=== PATIENT | female | born 1960 | race African-American/Black ===

== ENCOUNTER → 2017-10-01 | Outpatient (CLI) | payer BC ==
--- NOTE | 2017-10-01 15:55 | CARD ---
MR#: [id number] Date of Study: 10/01/2017 Ordering Physician: DARIA RUIZ, Referring Physician: DARIA RUIZ, Enedina: Yuliana Quarles [facility] APPROVED REPORT EXAM: Two-dimensional and M-mode echocardiogram with Doppler and color Doppler. Other Information Quality : Average INDICATION Abnormal ECG Atrial Fibrillation 2D DIMENSIONS Left Atrium(2D)3.4 (1.6-4.0cm)IVSd1.2 (0.7-1.1cm) Aortic Root(2D)2.7 (2.0-3.7cm)LVDd4.4 (3.9-5.9cm) LVOT Diameter2.0 (1.8-2.4cm)PWd1.1 (0.7-1.1cm) LVDs3.6 (2.5-4.0cm)FS (%) 19.8 % SV36.2 mlLVEF(%)50.0 (>50%) Aortic Valve AoV Peak Wong.136.9cm/sAoV VTI33.2cm AO Peak GR.7.5mmHgLVOT Peak Wong.85.6cm/s LVOT VTI 20.53cmAO Mean GR.5mmHg JN (VMAX)1.24nn9DKW (VTI)1.95cm2 Mitral Valve MV E Hgvgojtq02.4cm/sMV A Sopjqivi76.3cm/s E/A Ratio0.8 TDI E/Lateral E'8.4E/Medial E'9.7 Pulmonary Valve PV Peak Unhefuyd49.3cm/sPV Peak Grad.3mmHg Tricuspid Valve TR P. Zjzrxwts709mn/sTR Peak Gr.47mmHg LEFT VENTRICLE The left ventricle is normal size. There is borderline to mild concentric left ventricular hypertroph y. The left ventricular systolic function is normal. Estimated ejesction fraction is 55-60%. There is normal LV segmental wall motion. Transmitral Doppler flow pattern is Grade I-abnormal relaxation pat tern. RIGHT VENTRICLE The right ventricle is normal size. There is normal right ventricular wall thickness. The right ventr icular systolic function is normal. ATRIA The left atrium size is normal. The right atrium size is normal. The interatrial septum is intact wit h no evidence for an atrial septal defect or patent foramen ovale as noted on 2-D or Doppler imaging. AORTIC VALVE The aortic valve is normal in structure and function. Doppler and Color Flow revealed trace aortic re gurgitation. There is no significant aortic valvular stenosis. MITRAL VALVE The mitral valve is mildly thickened but opens well. There is no evidence of mitral valve prolapse. T here is no mitral valve stenosis. Doppler and Color-flow revealed trace mitral regurgitation. TRICUSPID VALVE The tricuspid valve is normal in structure and function. Doppler and Color Flow revealed moderate tri cuspid regurgitation. PULMONIC VALVE The pulmonary valve is normal in structure and function. Doppler and Color Flow revealed trace pulmon ic valvular regurgitation. GREAT VESSELS The aortic root is normal in size. The ascending aorta is normal in size. The IVC is normal in size a nd collapses >50% with inspiration. PERICARDIAL EFFUSION There is no pleural effusion. There is no evidence of significant pericardial effusion. Critical Notification Critical Value: No <Conclusion> The left ventricular systolic function is normal. Estimated ejesction fraction is 55-60%. There is normal LV segmental wall motion. Transmitral Doppler flow pattern is Grade I-abnormal relaxation pattern. Trace aortic regurgitation. Trace mitral regurgitation. Moderate tricuspid regurgitation. There is no evidence of significant pericardial effusion. Signed by : Daria Ruiz, Electronically Approved : 10/01/2017 15:55:12
== END | disposition home or self-care (01) ==
LOC: ECHO 12:53
PROVIDERS: ATTEND Internal Medicine Cardiovascular Disease
DX: I51.7 Cardiomegaly (principal); I48.0 Paroxysmal atrial fibrillation; R94.31 Abnormal electrocardiogram [ECG] [EKG]
CPT/HCPCS: 93306

== ENCOUNTER → 2019-02-20 | Outpatient (CLI) | payer BC ==
--- NOTE | 2019-02-20 14:49 | CARD ---
MR#: [id number] Date of Study: 02/20/2019 Ordering Physician: DARIA RUIZ, Referring Physician: DARIA RUIZ Tech: Naomi Baltazar RDCS APPROVED REPORT EXAM: Two-dimensional and M-mode echocardiogram with Doppler and color Doppler. Other Information Quality : AverageHR: 70bpm Rhythm : NSR INDICATION Atrial Fibrillation 2D DIMENSIONS RVDd3.4 (2.9-3.5cm)Left Atrium(2D)3.3 (1.6-4.0cm) IVSd1.4 (0.7-1.1cm)Aortic Root(2D)2.8 (2.0-3.7cm) LVDd4.3 (3.9-5.9cm)LVOT Diameter2.0 (1.8-2.4cm) PWd0.9 (0.7-1.1cm)LVDs3.0 (2.5-4.0cm) FS (%) 31.2 %SV49.7 ml LVEF(%)59.3 (>50%) M-Mode DIMENSIONS Left Atrium(MM)3.14 (2.5-4.0cm)Aortic Root3.03 (2.2-3.7cm) Aortic Valve AoV Peak Wong.116.4cm/sAoV VTI23.4cm AO Peak GR.5.4mmHgLVOT Peak Wong.71.1cm/s AO Mean GR.3mmHgAVA (VMAX)1.96cm2 JN (VTI)2.00cm2 Mitral Valve MV E Ksqsfcox63.2cm/sMV DECEL COJI648sn MV A Binnfpgy996.4cm/sE/A Ratio0.8 MV A Egqekbda661hl Pulmonary Valve PV Peak Bgjdukij24.8cm/s Tricuspid Valve TR P. Vhrdpusg071jv/sRAP HWHJIJRK0nhDc TR Peak Gr.27ivDzNKFF46jcXt LEFT VENTRICLE The left ventricle is normal size. There is normal left ventricular wall thickness. The left ventricu lar systolic function is normal and the ejection fraction is within normal range. The Ejection Fracti on is 55-60%. There is normal LV segmental wall motion. Transmitral Doppler flow pattern is Grade I-a bnormal relaxation pattern. RIGHT VENTRICLE The right ventricle is borderline dilated. There is normal right ventricular wall thickness. The righ t ventricular systolic function is normal. ATRIA The left atrium size is normal. The right atrium size is normal. The interatrial septum is intact wit h no evidence for an atrial septal defect or patent foramen ovale as noted on 2-D or Doppler imaging. AORTIC VALVE The aortic valve is normal in structure and function. The aortic valve is trileaflet. Doppler and Col or Flow revealed no significant aortic regurgitation. There is no significant aortic valvular stenosi s. There is no aortic valvular vegetation. MITRAL VALVE Mitral annular calcification is mild. There is no evidence of mitral valve prolapse. There is no mitr al valve stenosis. Doppler and Color-flow revealed trace mitral regurgitation. TRICUSPID VALVE The tricuspid valve is normal in structure and function. Doppler and Color Flow revealed trace tricus pid regurgitation. The PA pressure was estimated at 38 mmHg. There is no tricuspid valve prolapse or vegetation. There is no tricuspid valve stenosis. PULMONIC VALVE The pulmonary valve is normal in structure and function. Doppler and Color Flow revealed trace pulmon ic valvular regurgitation. There is no pulmonic valvular stenosis. GREAT VESSELS The aortic root is normal in size. The ascending aorta is normal in size. The IVC is normal in size a nd collapses >50% with inspiration. PERICARDIAL EFFUSION There is no evidence of significant pericardial effusion. Critical Notification Critical Value: No <Conclusion> The left ventricle is normal size. The left ventricular systolic function is normal and the ejection fraction is within normal range. The Ejection Fraction is 55-60%. There is no significant aortic valvular stenosis. Doppler and Color Flow revealed no significant aortic regurgitation. Doppler and Color-flow revealed trace mitral regurgitation. Doppler and Color Flow revealed trace tricuspid regurgitation. The PA pressure was estimated at 38 mmHg. Signed by : Dung Brunner MD Electronically Approved : 02/20/2019 14:49:05
== END | disposition home or self-care (01) ==
LOC: ECHO 08:43
PROVIDERS: ATTEND Internal Medicine Cardiovascular Disease
DX: I05.9 Rheumatic mitral valve disease, unspecified (principal); I48.0 Paroxysmal atrial fibrillation
CPT/HCPCS: 93306

== ENCOUNTER 2020-01-09 07:03 | Day surgery (SDC) | payer BC ==
[~2020-01-09 07:03] MED LIST: ASPI-630 PO; DILT180C29 PO; HYDR-2765 PO; HYDR200T71 PO; HYDR50TA6 PO; HYDROmorphone 2 MG/ML VIAL IV PRN; MORPHINE SULFATE 2 MG/ML VIAL. IV PRN; PROCHLORPERAZINE 10 MG/2 ML VIAL. IV PRN; ceFAZolin SODIUM IV Push 1 GM VIAL. IVP PRN; fentaNYL PF VIAL 100 MCG/2 ML VIAL IV PRN
[2020-01-09] MEDS ORDERED: METHYLENE BLUE 0.5% 10ml AMPULE. IJ ONE (07:30)
[2020-01-09] MEDS: IV RINGERS,LACTATED 1000ML 1,000 ML IV SCH ×2 (07:47→11:48)
[2020-01-09 07:52] LABS: BASO % 1 % (0-3); EOS # 0.2 x10^3/uL (0.0-0.7); EOS % 3 % (0-3); HEMATOCRIT 38.7 % (36.0-47.0); HEMOGLOBIN 12.5 g/dL (12.0-15.5); LYMPH # 2.1 x10^3/uL (1.0-4.8); LYMPH % 35 % (24-48); MEAN CORPUSCULAR HEMOGLOBIN 28 pg (25-35); MEAN CORPUSCULAR HGB CONC 32 g/dL (31-37); MEAN CORPUSCULAR VOLUME 87 fL (79-100); MONO # 0.4 x10^3/uL (0.0-1.1); MONO % 7 % (0-9); NEUT # 3.2 x10^3/uL (1.8-7.7); NEUT % 54 % (31-73); PLATELET COUNT 271 x10^3/uL (140-400); RED BLOOD COUNT 4.43 x10^6/uL (3.50-5.40); RED CELL DISTRIBUTION WIDTH 14.4 % (11.5-14.5); WHITE BLOOD COUNT 5.9 x10^3/uL (4.0-11.0)
[2020-01-09] MEDS ORDERED: METHYLENE BLUE 0.5% 10ml AMPULE. ONE (08:05)
[2020-01-09 08:12] LABS: CALCIUM 8.9 mg/dL (8.5-10.1); CREATININE 0.8 mg/dL (0.6-1.0); GFR 88.8; POTASSIUM 3.3 mmol/L (3.5-5.1); PROTHROMBIN TIME PATIENT 12.8 SEC (11.7-14.0)
[2020-01-09 08:17] LABS: ALBUMIN 3.2 g/dL (3.4-5.0); ALBUMIN/GLOBULIN RATIO 0.7 (1.0-1.7); TOTAL BILIRUBIN 0.3 mg/dL (0.2-1.0); TOTAL PROTEIN 7.5 g/dL (6.4-8.2)
[2020-01-09] MEDS ORDERED: PROPOFOL 20 ML IV ONE (08:54)
[2020-01-09] MEDS ORDERED: DEXAMETHASONE SOD PHOS 4 MG/ML VIAL ONE (08:54)
[2020-01-09] MEDS ORDERED: MIDAZOLAM HCL/PF 2 MG/2 ML VIAL. ONE (08:54)
[2020-01-09] MEDS ORDERED: LIDOCAINE 2% PF 5 ML VIAL. ONE (08:54)
[2020-01-09] MEDS ORDERED: KETAMINE HCL IN NACL, ISO-OSM 50 MG/5 ML SYRINGE ONE (08:54)
[2020-01-09] MEDS ORDERED: FAMOTIDINE 20 MG/2 ML VIAL ONE (08:54)
[2020-01-09] MEDS ORDERED: KETOROLAC 30 MG/ML VIAL. ONE (08:54)
[2020-01-09] MEDS ORDERED: ONDANSETRON PF 4 MG/2 ML VIAL. ONE (08:54)
[2020-01-09] MEDS ORDERED: SUCCINYLCHOLINE 200 MG/10 ML VIAL. ONE (08:56)
--- NOTE | 2020-01-09 09:48 | PDOC ---
SURGICAL PROGRESS NOTE Subjective No change in dictate H&P. Vital Signs Vital Signs Date Time Temp Pulse Resp B/P (MAP) Pulse Ox O2 Delivery O2 Flow Rate FiO2 01/09/20 07:22 97.5 93 100 97.5 01/09/20 07:20 18 147/77 Room Air Labs Laboratory Tests Test 01/09/20 07:30 White Blood Count 5.9 x10^3/uL (4.0-11.0) Red Blood Count 4.43 x10^6/uL (3.50-5.40) Hemoglobin 12.5 g/dL (12.0-15.5) Hematocrit 38.7 % (36.0-47.0) Mean Corpuscular Volume 87 fL (79-100) Mean Corpuscular Hemoglobin 28 pg (25-35) Mean Corpuscular Hemoglobin Concent 32 g/dL (31-37) Red Cell Distribution Width 14.4 % (11.5-14.5) Platelet Count 271 x10^3/uL (140-400) Neutrophils (%) (Auto) 54 % (31-73) Lymphocytes (%) (Auto) 35 % (24-48) Monocytes (%) (Auto) 7 % (0-9) Eosinophils (%) (Auto) 3 % (0-3) Basophils (%) (Auto) 1 % (0-3) Neutrophils # (Auto) 3.2 x10^3/uL (1.8-7.7) Lymphocytes # (Auto) 2.1 x10^3/uL (1.0-4.8) Monocytes # (Auto) 0.4 x10^3/uL (0.0-1.1) Eosinophils # (Auto) 0.2 x10^3/uL (0.0-0.7) Basophils # (Auto) 0.0 x10^3/uL (0.0-0.2) Prothrombin Time 12.8 SEC (11.7-14.0) Prothromb Time International Ratio 1.0 (0.8-1.1) Activated Partial Thromboplast Time 27 SEC (24-38) Sodium Level 140 mmol/L (136-145) Potassium Level 3.3 mmol/L (3.5-5.1) Chloride Level 103 mmol/L (98-107) Carbon Dioxide Level 28 mmol/L (21-32) Anion Gap 9 (6-14) Blood Urea Nitrogen 19 mg/dL (7-20) Creatinine 0.8 mg/dL (0.6-1.0) Estimated GFR (Cockcroft-Gault) 88.8 BUN/Creatinine Ratio 24 (6-20) Glucose Level 95 mg/dL (70-99) Calcium Level 8.9 mg/dL (8.5-10.1) Total Bilirubin 0.3 mg/dL (0.2-1.0) Aspartate Amino Transf (AST/SGOT) 14 U/L (15-37) Alanine Aminotransferase (ALT/SGPT) 15 U/L (14-59) Alkaline Phosphatase 96 U/L (46-116) Total Protein 7.5 g/dL (6.4-8.2) Albumin 3.2 g/dL (3.4-5.0) Albumin/Globulin Ratio 0.7 (1.0-1.7) Laboratory Tests Test 01/09/20 07:30 White Blood Count 5.9 x10^3/uL (4.0-11.0) Red Blood Count 4.43 x10^6/uL (3.50-5.40) Hemoglobin 12.5 g/dL (12.0-15.5) Hematocrit 38.7 % (36.0-47.0) Mean Corpuscular Volume 87 fL (79-100) Mean Corpuscular Hemoglobin 28 pg (25-35) Mean Corpuscular Hemoglobin Concent 32 g/dL (31-37) Red Cell Distribution Width 14.4 % (11.5-14.5) Platelet Count 271 x10^3/uL (140-400) Neutrophils (%) (Auto) 54 % (31-73) Lymphocytes (%) (Auto) 35 % (24-48) Monocytes (%) (Auto) 7 % (0-9) Eosinophils (%) (Auto) 3 % (0-3) Basophils (%) (Auto) 1 % (0-3) Neutrophils # (Auto) 3.2 x10^3/uL (1.8-7.7) Lymphocytes # (Auto) 2.1 x10^3/uL (1.0-4.8) Monocytes # (Auto) 0.4 x10^3/uL (0.0-1.1) Eosinophils # (Auto) 0.2 x10^3/uL (0.0-0.7) Basophils # (Auto) 0.0 x10^3/uL (0.0-0.2) Prothrombin Time 12.8 SEC (11.7-14.0) Prothromb Time International Ratio 1.0 (0.8-1.1) Activated Partial Thromboplast Time 27 SEC (24-38) Sodium Level 140 mmol/L (136-145) Potassium Level 3.3 mmol/L (3.5-5.1) Chloride Level 103 mmol/L (98-107) Carbon Dioxide Level 28 mmol/L (21-32) Anion Gap 9 (6-14) Blood Urea Nitrogen 19 mg/dL (7-20) Creatinine 0.8 mg/dL (0.6-1.0) Estimated GFR (Cockcroft-Gault) 88.8 BUN/Creatinine Ratio 24 (6-20) Glucose Level 95 mg/dL (70-99) Calcium Level 8.9 mg/dL (8.5-10.1) Total Bilirubin 0.3 mg/dL (0.2-1.0) Aspartate Amino Transf (AST/SGOT) 14 U/L (15-37) Alanine Aminotransferase (ALT/SGPT) 15 U/L (14-59) Alkaline Phosphatase 96 U/L (46-116) Total Protein 7.5 g/dL (6.4-8.2) Albumin 3.2 g/dL (3.4-5.0) Albumin/Globulin Ratio 0.7 (1.0-1.7) KEIRY SMITH MD Jan 09, 2020 09:48
--- NOTE | 2020-01-09 09:51 | PDOC ---
SURGICAL PROGRESS NOTE Subjective Op Note: Surgeon..............................................................Tom Pre op diag.........................................................mass right breast Post op diag.......................................................same Anesthesia.........................................................general Procedure..........................................................excision right breast mass via needle localization Blood loss..........................................................15cc Fluids................................................................see anesthesia sheet Drains...............................................................none Condition..........................................................satisfactory Vital Signs Vital Signs Date Time Temp Pulse Resp B/P (MAP) Pulse Ox O2 Delivery O2 Flow Rate FiO2 01/09/20 07:22 97.5 93 100 97.5 01/09/20 07:20 18 147/77 Room Air Labs Laboratory Tests Test 01/09/20 07:30 White Blood Count 5.9 x10^3/uL (4.0-11.0) Red Blood Count 4.43 x10^6/uL (3.50-5.40) Hemoglobin 12.5 g/dL (12.0-15.5) Hematocrit 38.7 % (36.0-47.0) Mean Corpuscular Volume 87 fL (79-100) Mean Corpuscular Hemoglobin 28 pg (25-35) Mean Corpuscular Hemoglobin Concent 32 g/dL (31-37) Red Cell Distribution Width 14.4 % (11.5-14.5) Platelet Count 271 x10^3/uL (140-400) Neutrophils (%) (Auto) 54 % (31-73) Lymphocytes (%) (Auto) 35 % (24-48) Monocytes (%) (Auto) 7 % (0-9) Eosinophils (%) (Auto) 3 % (0-3) Basophils (%) (Auto) 1 % (0-3) Neutrophils # (Auto) 3.2 x10^3/uL (1.8-7.7) Lymphocytes # (Auto) 2.1 x10^3/uL (1.0-4.8) Monocytes # (Auto) 0.4 x10^3/uL (0.0-1.1) Eosinophils # (Auto) 0.2 x10^3/uL (0.0-0.7) Basophils # (Auto) 0.0 x10^3/uL (0.0-0.2) Prothrombin Time 12.8 SEC (11.7-14.0) Prothromb Time International Ratio 1.0 (0.8-1.1) Activated Partial Thromboplast Time 27 SEC (24-38) Sodium Level 140 mmol/L (136-145) Potassium Level 3.3 mmol/L (3.5-5.1) Chloride Level 103 mmol/L (98-107) Carbon Dioxide Level 28 mmol/L (21-32) Anion Gap 9 (6-14) Blood Urea Nitrogen 19 mg/dL (7-20) Creatinine 0.8 mg/dL (0.6-1.0) Estimated GFR (Cockcroft-Gault) 88.8 BUN/Creatinine Ratio 24 (6-20) Glucose Level 95 mg/dL (70-99) Calcium Level 8.9 mg/dL (8.5-10.1) Total Bilirubin 0.3 mg/dL (0.2-1.0) Aspartate Amino Transf (AST/SGOT) 14 U/L (15-37) Alanine Aminotransferase (ALT/SGPT) 15 U/L (14-59) Alkaline Phosphatase 96 U/L (46-116) Total Protein 7.5 g/dL (6.4-8.2) Albumin 3.2 g/dL (3.4-5.0) Albumin/Globulin Ratio 0.7 (1.0-1.7) Laboratory Tests Test 01/09/20 07:30 White Blood Count 5.9 x10^3/uL (4.0-11.0) Red Blood Count 4.43 x10^6/uL (3.50-5.40) Hemoglobin 12.5 g/dL (12.0-15.5) Hematocrit 38.7 % (36.0-47.0) Mean Corpuscular Volume 87 fL (79-100) Mean Corpuscular Hemoglobin 28 pg (25-35) Mean Corpuscular Hemoglobin Concent 32 g/dL (31-37) Red Cell Distribution Width 14.4 % (11.5-14.5) Platelet Count 271 x10^3/uL (140-400) Neutrophils (%) (Auto) 54 % (31-73) Lymphocytes (%) (Auto) 35 % (24-48) Monocytes (%) (Auto) 7 % (0-9) Eosinophils (%) (Auto) 3 % (0-3) Basophils (%) (Auto) 1 % (0-3) Neutrophils # (Auto) 3.2 x10^3/uL (1.8-7.7) Lymphocytes # (Auto) 2.1 x10^3/uL (1.0-4.8) Monocytes # (Auto) 0.4 x10^3/uL (0.0-1.1) Eosinophils # (Auto) 0.2 x10^3/uL (0.0-0.7) Basophils # (Auto) 0.0 x10^3/uL (0.0-0.2) Prothrombin Time 12.8 SEC (11.7-14.0) Prothromb Time International Ratio 1.0 (0.8-1.1) Activated Partial Thromboplast Time 27 SEC (24-38) Sodium Level 140 mmol/L (136-145) Potassium Level 3.3 mmol/L (3.5-5.1) Chloride Level 103 mmol/L (98-107) Carbon Dioxide Level 28 mmol/L (21-32) Anion Gap 9 (6-14) Blood Urea Nitrogen 19 mg/dL (7-20) Creatinine 0.8 mg/dL (0.6-1.0) Estimated GFR (Cockcroft-Gault) 88.8 BUN/Creatinine Ratio 24 (6-20) Glucose Level 95 mg/dL (70-99) Calcium Level 8.9 mg/dL (8.5-10.1) Total Bilirubin 0.3 mg/dL (0.2-1.0) Aspartate Amino Transf (AST/SGOT) 14 U/L (15-37) Alanine Aminotransferase (ALT/SGPT) 15 U/L (14-59) Alkaline Phosphatase 96 U/L (46-116) Total Protein 7.5 g/dL (6.4-8.2) Albumin 3.2 g/dL (3.4-5.0) Albumin/Globulin Ratio 0.7 (1.0-1.7) KEIRY SMITH MD Jan 09, 2020 09:51
--- NOTE | 2020-01-09 09:52 | PREOP HP ---
DATE OF SERVICE: 01/09/2020 HISTORY OF PRESENT ILLNESS: The patient comes back because of abnormal mammogram. Apparently, she had abnormal mammogram in 2019, which had changed from her previous mammograms and biopsy was suggested. We spoke to her at that time and she wanted to have the mass removed. For various reasons, she could not and she comes back in now for treatment of the same. She understands clearly that we get the possibility of doing a needle core biopsy. Without surgery, there is a probability and we will do that if she wants, but she decided she wanted to have the mass removed. As such, we will plan the same. PAST MEDICAL HISTORY: Shows normal childhood diseases. PAST SURGICAL HISTORY: She has had surgery for arthroscopic procedures on both knees and has had neck surgery. She also has had a hysterectomy some years ago. MEDICATIONS: She takes medicine for hypertension and arthritic condition, and also takes pain medicine. ALLERGIES: She has no allergies to her knowledge. She does not take any anticoagulants or aspirin. SOCIAL HISTORY: She denies excessive drinking, only drinks socially and not enough to get inebriated and does not use drugs and does not smoke. FAMILY HISTORY: Noncontributory. REVIEW OF SYSTEMS: Showed no evidence of problem with her breast, this was found on mammographically. She has no pain or has difficulty with breast. PHYSICAL EXAMINATION: CHEST: Clear to auscultation bilaterally. HEART: Had no murmurs, heaves, friction rubs or thrills and the rate estimated to be at 72 beats per minute, regular. ABDOMEN: Not examined. EXTREMITIES: Grossly normal. IMPRESSION: 1. Arthritis. 2. Right breast mass. 3. Hypertension. PLAN: It should be noted that based on her examination and her request, we will plan to biopsy with needle localization at that time that is satisfactory with her. KEIRY SMITH MD DR: SANTIAGO/lyssa JOB#: [id number] / [id number] YVETTE
--- NOTE | 2020-01-09 10:13 | RAD ---
Examination: 1. Ultrasound-guided left breast needle localization. 2. Postprocedure left digital diagnostic mammogram. INDICATION: Suspicious left breast mass recommended for biopsy. Elected by patient for surgical excisional biopsy. COMPARISON: Left mammogram and breast ultrasound of August 30, 2019. TECHNIQUE AND FINDINGS: An appropriate procedural pause was observed after informed consent was obtained. Standard sterile technique, ultrasound guidance and local anesthesia was utilized and directing a 5 cm Rey needle from a lateral approach through the sonographic mass at the left 3:00 position 15 cm from the nipple. A small amount of methylene blue was injected at the site and a hookwire was threaded through the needle. The needle was removed leaving the wire in place and a postprocedure left diagnostic mammogram was obtained. The postprocedure mammogram showed satisfactory positioning of the hookwire through the mass with the hook on the medial border of the mass. Patient tolerated the procedure without incident. She was released from the imaging suite to follow-up with her referring surgeon. IMPRESSION: Successful left breast ultrasound-guided needle localization of a mass in the lateral left breast targeted for surgical excisional biopsy. A specimen radiograph is recommended. It should contain the hookwire and mammographic density correlating with the sonographic mass. A generous medial border is recommended. Discussed with Dr. Santos in person at approximately 9:30 AM on January 09, 2020.
[2020-01-09] MEDS ORDERED: ROCURONIUM 50 MG/5 ML VIAL. ONE (10:21)
[2020-01-09] MEDS ORDERED: fentaNYL PF VIAL 100 MCG/2 ML VIAL ONE (10:32)
--- NOTE | 2020-01-09 11:03 | RAD ---
Examination: Breast surgical specimen radiograph INDICATION: Status post surgical excisional biopsy of a suspicious mass in the lateral posterior left breast. COMPARISON: Post needle localization mammogram of earlier the same day. FINDINGS: The specimen is radiographed on a grid and shows the localized mass present over the 6F position with the hookwire passing through it. A second density at the 3.5F-G position is present and likely reflects fibroglandular tissue. As there is no prior core needle biopsy, no biopsy clip is present. Surgical margins around the localized mass appear satisfactory. IMPRESSION: Surgical specimen appears to contain the localized mass in its entirety. Discussed with Dr. Santos by telephone at 10:53 AM on January 09, 2020.
[2020-01-09] MEDS ORDERED: DESFLURANE 61 TO 120 MINUTES IH ONE (11:14)
--- NOTE | 2020-01-09 11:33 | DISCH ---
DISCHARGE INSTRUCTIONS Condition on Discharge Condition on Discharge: Stable Activity After Discharge Activity Instructions for Disc: No restrictions Diet after Discharge Diet after Discharge: Clear Liquid Wound Incision Care Wound/Incision Care: Other, see below Other wound/incision instructi: keep wound clean and dry Contacting the DRKaitlyn after DC Call your doctor for: Follow-Up Follow up with: Dr. Smith..call and make appt for 10 days KEIRY SMITH MD Jan 09, 2020 11:33
[2020-01-09] MEDS ORDERED: HYDROcodone/APAP 7.5/325MG 1 TAB TABLET PO ONE (12:00)
[2020-01-09 13:20] VITALS: BP 142/66
--- NOTE | 2020-01-10 09:50 | OP ---
DATE OF SURGERY: SURGEON: Chris Smith MD PREOPERATIVE DIAGNOSIS: Suspicious lesion, left breast found mammographically and sonographically. POSTOPERATIVE DIAGNOSIS: Suspicious lesion, left breast found mammographically and sonographically. ANESTHESIA: General. PROCEDURE: Excision of left breast mass via needle localization. TECHNIQUE: Under general anesthesia, the patient was properly prepped and draped in routine fashion. A guidewire had been cut, so that it would not be too long. It was in the left breast inferior portion. As such, a skin incision was made somewhat anterior to the guidewire, carried through the skin about 2-2.5 inches in length. This was at the lower outer quadrant of the left breast. We went through the subcutaneous and then the wire was delivered into the wound. We then used Otf retractors to hold the skin edges, used cautery to go around this area and around the guidewire. We were then able to grasp the guidewire and the tissue around it and then used Ruiz retractors to go widely around the guidewire. We frankly felt some of the methylene blue that had been placed where the tumor was. We slowly went around the guidewire, not entering the methylene blue and staying completely around it and passed the guidewire totally. There was minimal bleeding as cautery was used. We then sent the specimen to x-ray and the radiologist reviewed it and stated that the mass in question had been removed from the patient and was in the specimen that he received. As such, the wound was irrigated and then inspected and no further bleeding was noted. A 3-0 Vicryl was used to approximate the deeper tissues in an interrupted fashion and the more superficial layers were closed with 4-0 intermittent Vicryl sutures. The skin was closed using 5-0 interrupted nylon. Sterile dressing was applied and the procedure was terminated. The blood loss was less than 5-10 mL. Fluids given can be obtained from the anesthesia sheet. No drains were used and the condition of the patient was satisfactory as she has returned to the recovery room. CHRIS SMITH MD DR: SANTIAGO/lyssa JOB#: [id number] / [id number] YVETTE
--- NOTE | 2020-01-10 15:12 | HP ---
ADMIT DATE: 01/09/2020 HISTORY OF PRESENT ILLNESS: The patient had been sent to me for left breast problem and we talked about it and she decided to have something done about it. Apparently, she had a mammogram in 2019 which had changed from her previous mammogram and it was highly suggested that she had this biopsied. We did talk about needle core biopsies, Radiology to do it. She did not want that. She wanted the mass removed completely and therefore, we scheduled this surgery. She understands ramifications and wishes that to be done. The patient otherwise is doing relatively well for the part of breast that was concerned, as there were no symptoms. PAST MEDICAL HISTORY: Shows she has had normal childhood diseases. She has had arthroscopic procedures on both knees for arthritis and has had a hysterectomy many years ago. She takes pain medicine and also medicine for hypertension and arthritis. ALLERGIES: She has no allergies to her knowledge. MEDICATIONS: Does not take aspirin or any anticoagulants. SOCIAL HISTORY: Reveals only that she drinks moderately not enough to get inebriated or intoxicated and does not take illicit drugs. She denies smoking. FAMILY HISTORY: Negative and noncontributory. REVIEW OF SYSTEMS: As stated before, showed no breast problems. She does have some pain in both knees and had no other difficulties, however. PHYSICAL EXAMINATION: HEAD, EYES, EAR, NOSE AND THROAT: Grossly normal. CHEST: Clear to auscultation bilaterally. HEART: Had no murmurs. Rate was 70 beats per minute, was regular and there were no thrills or other abnormalities. ABDOMEN: Negative. BREASTS: Examination of the breast was negative. EXTREMITIES: Grossly normal. IMPRESSION: 1. Left breast mass. 2. Arthritis. 3. Hypertension. PLAN: She does wish to have the surgery and we will proceed with needle localization and removal of the left breast mass. KEIRY SMITH MD DR: SANTIAGO/lyssa JOB#: [id number] / [id number] YVETTE
--- NOTE | 2020-01-11 14:06 | PATHOLOGY ---
[facility] Accession Number: [id number] . 01 Material submitted: . breast - LEFT BREAST MASS. Modifiers: left . 01 Clinical history: . Left breast mass . 02 Diagnosis: Breast, left breast mass, lumpectomy: - Two masses grossly described revealing infiltrating ductal carcinoma grade III, one measuring 1.3 cm x 0.8 cm, and the other measures 0.7 x 0.7 cm. The smaller mass is 0.1 cm from the black ink margin. 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 - See comment. ([facility]:hari; 01/11/2020) R 01/11/2020 1402 Local . 02 Comment: This case is also reviewed by Dr. Pham. This case was discussed with Dr. Santos on 01/11/2020 at 2pm. ([facility]:hari; 01/11/2020) . . Surgical Pathology Cancer Case Summary INVASIVE CARCINOMA OF THE BREAST: Resection . Procedure ___ Excision (less than total mastectomy) . Specimen Laterality ___ Left breast . + Tumor Site + ___ Not specified . Tumor Size ___ Greatest dimension of largest invasive focus >1 mm (specify exact measurement) (millimeters): 13 mm + Additional dimensions: 8 mm + Additional dimensions: Smaller lesion measuring 7 mm . Histologic Type ___ Invasive carcinoma of no special type (ductal) . Histologic Grade Glandular (Acinar)/Tubular Differentiation ___ Score 3 (<10% of tumor area forming glandular/tubular structures) . Nuclear Pleomorphism ___ Score 3 (vesicular nuclei, often with prominent nucleoli, exhibiting marked variation in size and shape, occasionally with very large and bizarre forms) . Mitotic Rate ___ Score 2 . Overall Grade ___ Grade 3 (scores of 8 or 9) . + Tumor Focality + ___ Multiple foci of invasive carcinoma + ___ Number of foci: 2 + Sizes of individual foci (millimeters): 13 mm and 7 mm . Ductal Carcinoma In Situ (DCIS) ___ Present + ___ Negative for extensive intraductal component (EIC) . + Size (Extent) of DCIS + Estimated size (extent) of DCIS is at least (millimeters) 3 mm . + Architectural Patterns + ___ [place] . + Nuclear Grade + ___ Grade III (high) . + Necrosis + ___ Present, central (expansive "comedo" necrosis) . + Lobular Carcinoma In Situ (LCIS) + ___ Not identified . Tumor Extension Skin ___ Skin is not present . Nipple ___ DCIS does not involve the nipple epidermis . Skeletal Muscle ___ No skeletal muscle is present . Margins Invasive Carcinoma Margins ___ Uninvolved by invasive carcinoma Distance from closest margin (millimeters): ___ Specify 1 mm . + Specify closest margin(s): ___ Cannot be determined: not indicated . . DCIS Margins ___ Uninvolved by DCIS Distance from closest margin (millimeters): ___ Specify 1 mm . Specify closest margin(s) (required only if <2mm): ___ Cannot be determined (explain): Not specified . Regional Lymph Nodes ___ No lymph nodes submitted or found . Treatment Effect in the Breast ___ No known presurgical therapy . + Lymphovascular Invasion + ___ Suspicious . + Dermal Lymphovascular Invasion + ___ No skin present . Pathologic Stage Classification (pTNM, AJCC 8th Edition) Primary Tumor (pT) ___ pT1c:Tumor >10 mm but =20 mm in greatest dimension . Regional Lymph Nodes (pN) ___ pNX:Regional lymph nodes cannot be assessed . Distant Metastasis (pM) ___ Not applicable . + Ancillary Studies ER, MA, HER2 and KI67 ordered on A3 . Electronically signed: . Juan J Gaines MD, Pathologist NPI- [id number] . 01 Gross description: . The specimen is received in formalin, labeled "Moni Scott, left breast mass" and consists of an unoriented 27 g lumpectomy specimen with a localization wire protruding from one aspect. It measures 9.0 x 5.4 x 1.1 cm and is entirely inked black with the exception of the localization wire aspect which is inked yellow. It is serially sectioned revealing 2 circumscribed pink-white masses measuring 1.3 x 0.8 cm and 0.7 x 0.7 cm. The 2 masses are 0.9 cm apart. The larger mass is 0.2 cm from the nearest black inked margin and clears all other margins by 0.3 cm or greater. The smaller mass is 0.1 cm from the black inked margin and clears all other margins by 0.2 cm or greater. The uninvolved parenchyma shows extensively blue dyed cut surfaces with no additional mass lesions. [employer] sections are submitted as follows: . A1: Yellow inked aspect, perpendicular A2: Larger mass A3-A4: Larger mass to include smaller mass A5: Remainder of smaller mass A6: Full-thickness slice adjacent larger mass A7-A8: Full-thickness slice adjacent smaller mass, bisected A9-A10: Random bisected full-thickness section A11: Aspect opposite yellow inked aspect, perpendicular . The specimen was obtained at 11 AM on 01/09/2020 and placed in formalin at 11:20 AM. The cold ischemic time is 20 minutes and the total formalin fixation time is greater than 6 hours but less than 72 hours. ([facility]; 01/10/2020) SYU/SYU 01/10/2020 1014 Local . 02 Pathologist provided ICD-10: C50.912, D05.12 . 02 CPT . 781095 Specimen Comment: A courtesy copy of this report has been sent to [phone] Specimen Comment: [id number] Specimen Comment: Report sent to / DR ESPINAL Performed at: 01 [facility] [address] [facility] [place] [address], [place] [id number] MD Landon Hugo MD Phone: [phone] Performed at: 02 [facility] [address] [id number] MD Ryan Cook MD Phone: [phone]
== END 2020-01-09 13:26 | disposition home or self-care (01) ==
LOC: SURG 07:03
PROVIDERS: ATTEND Specialist
DX: N63.20 Unspecified lump in the left breast, unspecified quadrant (principal); D05.12 Intraductal carcinoma in situ of left breast; I10 Essential (primary) hypertension; Z79.01 Long term (current) use of anticoagulants; Z87.39 Personal history of other diseases of the musculoskeletal system and connective tissue; Z90.710 Acquired absence of both cervix and uterus; Z72.89 Other problems related to lifestyle
CPT/HCPCS: 19083; 19301; 36415; 76098; 77065; 80053; 85025; 85610; 85730; 88307; A7015; J0330; J0690; J1100; J1885; J2250; J2405; J2704; J3010; J3490; Q9968; 76942

== ENCOUNTER 2020-01-30 09:23 | Day surgery (SDC) | payer BC ==
[~2020-01-30] VITALS: Ht 170.2 cm; Wt 99.7 kg
[~2020-01-30 09:23] MED LIST changes: +IV RINGERS,LACTATED 1000ML 1,000 ML IV SCH; +LIDOCAINE 1% PF 2 ML VIAL. ID PRN; +LIDOCAINE 2% PF 5 ML VIAL. ONE; +PROPOFOL 20 ML IV ONE; +ROCURONIUM 50 MG/5 ML VIAL. ONE; +fentaNYL PF VIAL 100 MCG/2 ML VIAL ONE
[2020-01-30 10:18] LABS: BASO # 0.2 x10^3/uL (0.0-0.2); BASO % 3 % (0-3); EOS # 0.2 x10^3/uL (0.0-0.7); EOS % 3 % (0-3); HEMATOCRIT 38.8 % (36.0-47.0); HEMOGLOBIN 12.5 g/dL (12.0-15.5); LYMPH # 2.2 x10^3/uL (1.0-4.8); LYMPH % 35 % (24-48); MEAN CORPUSCULAR HEMOGLOBIN 28 pg (25-35); MEAN CORPUSCULAR HGB CONC 32 g/dL (31-37); MEAN CORPUSCULAR VOLUME 87 fL (79-100); MONO # 0.4 x10^3/uL (0.0-1.1); MONO % 7 % (0-9); NEUT # 3.4 x10^3/uL (1.8-7.7); NEUT % 53 % (31-73); PLATELET COUNT 273 x10^3/uL (140-400); RED BLOOD COUNT 4.43 x10^6/uL (3.50-5.40); RED CELL DISTRIBUTION WIDTH 14.5 % (11.5-14.5); WHITE BLOOD COUNT 6.4 x10^3/uL (4.0-11.0)
[2020-01-30 10:24] LABS: CREATININE 0.8 mg/dL (0.6-1.0); GFR 88.8; POTASSIUM 3.8 mmol/L (3.5-5.1)
[2020-01-30 10:30] LABS: ALBUMIN 3.1 g/dL (3.4-5.0); ALBUMIN/GLOBULIN RATIO 0.7 (1.0-1.7); TOTAL BILIRUBIN 0.4 mg/dL (0.2-1.0); TOTAL PROTEIN 7.3 g/dL (6.4-8.2)
[2020-01-30 10:31] LABS: PROTHROMBIN TIME PATIENT 13.4 SEC (11.7-14.0)
--- NOTE | 2020-01-30 11:28 | PDOC ---
SURGICAL PROGRESS NOTE Subjective No change in dictated H&P.. she has positive breast biopsy and is for node sampling and segmental resection left breast. she was told about the node sampling and she also wanted wider excisionof the surgical area. She was told that Dr. Rios did not object to her request. I will honor her wishes. Vital Signs Vital Signs Date Time Temp Pulse Resp B/P (MAP) Pulse Ox O2 Delivery O2 Flow Rate FiO2 01/30/20 09:51 98.0 101 20 114/70 99 Room Air 98.0 Labs Laboratory Tests Test 01/30/20 09:58 White Blood Count 6.4 x10^3/uL (4.0-11.0) Red Blood Count 4.43 x10^6/uL (3.50-5.40) Hemoglobin 12.5 g/dL (12.0-15.5) Hematocrit 38.8 % (36.0-47.0) Mean Corpuscular Volume 87 fL (79-100) Mean Corpuscular Hemoglobin 28 pg (25-35) Mean Corpuscular Hemoglobin Concent 32 g/dL (31-37) Red Cell Distribution Width 14.5 % (11.5-14.5) Platelet Count 273 x10^3/uL (140-400) Neutrophils (%) (Auto) 53 % (31-73) Lymphocytes (%) (Auto) 35 % (24-48) Monocytes (%) (Auto) 7 % (0-9) Eosinophils (%) (Auto) 3 % (0-3) Basophils (%) (Auto) 3 % (0-3) Neutrophils # (Auto) 3.4 x10^3/uL (1.8-7.7) Lymphocytes # (Auto) 2.2 x10^3/uL (1.0-4.8) Monocytes # (Auto) 0.4 x10^3/uL (0.0-1.1) Eosinophils # (Auto) 0.2 x10^3/uL (0.0-0.7) Basophils # (Auto) 0.2 x10^3/uL (0.0-0.2) Prothrombin Time 13.4 SEC (11.7-14.0) Prothromb Time International Ratio 1.1 (0.8-1.1) Activated Partial Thromboplast Time 29 SEC (24-38) Sodium Level 141 mmol/L (136-145) Potassium Level 3.8 mmol/L (3.5-5.1) Chloride Level 105 mmol/L (98-107) Carbon Dioxide Level 29 mmol/L (21-32) Anion Gap 7 (6-14) Blood Urea Nitrogen 13 mg/dL (7-20) Creatinine 0.8 mg/dL (0.6-1.0) Estimated GFR (Cockcroft-Gault) 88.8 BUN/Creatinine Ratio 16 (6-20) Glucose Level 108 mg/dL (70-99) Calcium Level 9.0 mg/dL (8.5-10.1) Total Bilirubin 0.4 mg/dL (0.2-1.0) Aspartate Amino Transf (AST/SGOT) 16 U/L (15-37) Alanine Aminotransferase (ALT/SGPT) 15 U/L (14-59) Alkaline Phosphatase 97 U/L (46-116) Total Protein 7.3 g/dL (6.4-8.2) Albumin 3.1 g/dL (3.4-5.0) Albumin/Globulin Ratio 0.7 (1.0-1.7) Laboratory Tests Test 01/30/20 09:58 White Blood Count 6.4 x10^3/uL (4.0-11.0) Red Blood Count 4.43 x10^6/uL (3.50-5.40) Hemoglobin 12.5 g/dL (12.0-15.5) Hematocrit 38.8 % (36.0-47.0) Mean Corpuscular Volume 87 fL (79-100) Mean Corpuscular Hemoglobin 28 pg (25-35) Mean Corpuscular Hemoglobin Concent 32 g/dL (31-37) Red Cell Distribution Width 14.5 % (11.5-14.5) Platelet Count 273 x10^3/uL (140-400) Neutrophils (%) (Auto) 53 % (31-73) Lymphocytes (%) (Auto) 35 % (24-48) Monocytes (%) (Auto) 7 % (0-9) Eosinophils (%) (Auto) 3 % (0-3) Basophils (%) (Auto) 3 % (0-3) Neutrophils # (Auto) 3.4 x10^3/uL (1.8-7.7) Lymphocytes # (Auto) 2.2 x10^3/uL (1.0-4.8) Monocytes # (Auto) 0.4 x10^3/uL (0.0-1.1) Eosinophils # (Auto) 0.2 x10^3/uL (0.0-0.7) Basophils # (Auto) 0.2 x10^3/uL (0.0-0.2) Prothrombin Time 13.4 SEC (11.7-14.0) Prothromb Time International Ratio 1.1 (0.8-1.1) Activated Partial Thromboplast Time 29 SEC (24-38) Sodium Level 141 mmol/L (136-145) Potassium Level 3.8 mmol/L (3.5-5.1) Chloride Level 105 mmol/L (98-107) Carbon Dioxide Level 29 mmol/L (21-32) Anion Gap 7 (6-14) Blood Urea Nitrogen 13 mg/dL (7-20) Creatinine 0.8 mg/dL (0.6-1.0) Estimated GFR (Cockcroft-Gault) 88.8 BUN/Creatinine Ratio 16 (6-20) Glucose Level 108 mg/dL (70-99) Calcium Level 9.0 mg/dL (8.5-10.1) Total Bilirubin 0.4 mg/dL (0.2-1.0) Aspartate Amino Transf (AST/SGOT) 16 U/L (15-37) Alanine Aminotransferase (ALT/SGPT) 15 U/L (14-59) Alkaline Phosphatase 97 U/L (46-116) Total Protein 7.3 g/dL (6.4-8.2) Albumin 3.1 g/dL (3.4-5.0) Albumin/Globulin Ratio 0.7 (1.0-1.7) KEIRY SMITH MD Jan 30, 2020 11:28
--- NOTE | 2020-01-30 11:31 | PDOC ---
SURGICAL PROGRESS NOTE Subjective Op Note: Surgeon.........................................................Smith Pro op diag....................................................invasive cancer left breast. Post op diag.................................................same Anesthesia...................................................general Procedure....................................................axillary sampling and partial mastectomy..;segmental resection. Drains..........................................................none Blood loss....................................................25cc Fluids..........................................................see anesthesia sheet Condition.....................................................satisfactory Vital Signs Vital Signs Date Time Temp Pulse Resp B/P (MAP) Pulse Ox O2 Delivery O2 Flow Rate FiO2 01/30/20 09:51 98.0 101 20 114/70 99 Room Air 98.0 Labs Laboratory Tests Test 01/30/20 09:58 White Blood Count 6.4 x10^3/uL (4.0-11.0) Red Blood Count 4.43 x10^6/uL (3.50-5.40) Hemoglobin 12.5 g/dL (12.0-15.5) Hematocrit 38.8 % (36.0-47.0) Mean Corpuscular Volume 87 fL (79-100) Mean Corpuscular Hemoglobin 28 pg (25-35) Mean Corpuscular Hemoglobin Concent 32 g/dL (31-37) Red Cell Distribution Width 14.5 % (11.5-14.5) Platelet Count 273 x10^3/uL (140-400) Neutrophils (%) (Auto) 53 % (31-73) Lymphocytes (%) (Auto) 35 % (24-48) Monocytes (%) (Auto) 7 % (0-9) Eosinophils (%) (Auto) 3 % (0-3) Basophils (%) (Auto) 3 % (0-3) Neutrophils # (Auto) 3.4 x10^3/uL (1.8-7.7) Lymphocytes # (Auto) 2.2 x10^3/uL (1.0-4.8) Monocytes # (Auto) 0.4 x10^3/uL (0.0-1.1) Eosinophils # (Auto) 0.2 x10^3/uL (0.0-0.7) Basophils # (Auto) 0.2 x10^3/uL (0.0-0.2) Prothrombin Time 13.4 SEC (11.7-14.0) Prothromb Time International Ratio 1.1 (0.8-1.1) Activated Partial Thromboplast Time 29 SEC (24-38) Sodium Level 141 mmol/L (136-145) Potassium Level 3.8 mmol/L (3.5-5.1) Chloride Level 105 mmol/L (98-107) Carbon Dioxide Level 29 mmol/L (21-32) Anion Gap 7 (6-14) Blood Urea Nitrogen 13 mg/dL (7-20) Creatinine 0.8 mg/dL (0.6-1.0) Estimated GFR (Cockcroft-Gault) 88.8 BUN/Creatinine Ratio 16 (6-20) Glucose Level 108 mg/dL (70-99) Calcium Level 9.0 mg/dL (8.5-10.1) Total Bilirubin 0.4 mg/dL (0.2-1.0) Aspartate Amino Transf (AST/SGOT) 16 U/L (15-37) Alanine Aminotransferase (ALT/SGPT) 15 U/L (14-59) Alkaline Phosphatase 97 U/L (46-116) Total Protein 7.3 g/dL (6.4-8.2) Albumin 3.1 g/dL (3.4-5.0) Albumin/Globulin Ratio 0.7 (1.0-1.7) Laboratory Tests Test 01/30/20 09:58 White Blood Count 6.4 x10^3/uL (4.0-11.0) Red Blood Count 4.43 x10^6/uL (3.50-5.40) Hemoglobin 12.5 g/dL (12.0-15.5) Hematocrit 38.8 % (36.0-47.0) Mean Corpuscular Volume 87 fL (79-100) Mean Corpuscular Hemoglobin 28 pg (25-35) Mean Corpuscular Hemoglobin Concent 32 g/dL (31-37) Red Cell Distribution Width 14.5 % (11.5-14.5) Platelet Count 273 x10^3/uL (140-400) Neutrophils (%) (Auto) 53 % (31-73) Lymphocytes (%) (Auto) 35 % (24-48) Monocytes (%) (Auto) 7 % (0-9) Eosinophils (%) (Auto) 3 % (0-3) Basophils (%) (Auto) 3 % (0-3) Neutrophils # (Auto) 3.4 x10^3/uL (1.8-7.7) Lymphocytes # (Auto) 2.2 x10^3/uL (1.0-4.8) Monocytes # (Auto) 0.4 x10^3/uL (0.0-1.1) Eosinophils # (Auto) 0.2 x10^3/uL (0.0-0.7) Basophils # (Auto) 0.2 x10^3/uL (0.0-0.2) Prothrombin Time 13.4 SEC (11.7-14.0) Prothromb Time International Ratio 1.1 (0.8-1.1) Activated Partial Thromboplast Time 29 SEC (24-38) Sodium Level 141 mmol/L (136-145) Potassium Level 3.8 mmol/L (3.5-5.1) Chloride Level 105 mmol/L (98-107) Carbon Dioxide Level 29 mmol/L (21-32) Anion Gap 7 (6-14) Blood Urea Nitrogen 13 mg/dL (7-20) Creatinine 0.8 mg/dL (0.6-1.0) Estimated GFR (Cockcroft-Gault) 88.8 BUN/Creatinine Ratio 16 (6-20) Glucose Level 108 mg/dL (70-99) Calcium Level 9.0 mg/dL (8.5-10.1) Total Bilirubin 0.4 mg/dL (0.2-1.0) Aspartate Amino Transf (AST/SGOT) 16 U/L (15-37) Alanine Aminotransferase (ALT/SGPT) 15 U/L (14-59) Alkaline Phosphatase 97 U/L (46-116) Total Protein 7.3 g/dL (6.4-8.2) Albumin 3.1 g/dL (3.4-5.0) Albumin/Globulin Ratio 0.7 (1.0-1.7) KEIRY SMITH MD Jan 30, 2020 11:31
[2020-01-30] MEDS ORDERED: DESFLURANE > 120 MINUTES IH ONE (11:38)
[2020-01-30] MEDS ORDERED: DEXAMETHASONE SOD PHOS 4 MG/ML VIAL ONE (11:38)
[2020-01-30] MEDS ORDERED: ISOSULFAN BLUE 1% 50 MG/5 ML VIAL. SQ ONE (11:39)
[2020-01-30] MEDS ORDERED: fentaNYL PF VIAL 100 MCG/2 ML VIAL ONE ×2 (12:03→13:48)
[2020-01-30] MEDS ORDERED: LIDOCAINE 1%/EPI 1:100,000 20 ML VIAL. ONE (12:04)
[2020-01-30] MEDS ORDERED: FAMOTIDINE 20 MG/2 ML VIAL ONE (12:08)
[2020-01-30] MEDS ORDERED: ONDANSETRON PF 4 MG/2 ML VIAL. ONE (12:09)
[2020-01-30] MEDS ORDERED: PHENYLEPHRINE in 0.9% NACL PF 1 MG/10 ML SYRINGE. IV ONE (12:11)
[2020-01-30] MEDS ORDERED: KETOROLAC 30 MG/ML VIAL. ONE (12:27)
[2020-01-30] MEDS ORDERED: ceFAZolin SODIUM IV Push 1 GM VIAL. IVP ONE (12:27)
--- NOTE | 2020-01-30 12:42 | RAD ---
Examination: SENTINEL NODE INJECTION History: Left breast cancer Comparison/Correlation: Outside mammographic examination 01/09/2020 Findings: Cleansing of the lateral left breast region about the site of incision scar was performed with Betadine. Lidocaine spray was utilized at this site. 1005 uCi technetium 99m Lymphoseek was intradermally administered lateral to the 3:00 region incision scar. Impression: Successful intradermal administration of Lymphoseek PQRS Compliance Statement: One or more of the following individualized dose reduction techniques were utilized for this examination: 1. Automated exposure control 2. Adjustment of the mA and/or kV according to patient size 3. Use of iterative reconstruction technique Electronically signed by: Saeid Barajas MD (01/30/2020 12:39 PM) [id number]
--- NOTE | 2020-01-30 13:46 | DISCH ---
DISCHARGE INSTRUCTIONS Condition on Discharge Condition on Discharge: Stable Activity After Discharge Activity Instructions for Disc: No restrictions, Avoid exertion Diet after Discharge Diet after Discharge: Clear Liquid Wound Incision Care Wound/Incision Care: Other, see below Other wound/incision instructi: keep wound dry for t l;east 72 hours. Follow-Up Follow up with: call and make appointment to see Dr. Smith in 10-14 days. KEIRY SMITH MD Jan 30, 2020 13:46
[2020-01-30] MEDS ORDERED: HYDROcodone/APAP 7.5/325MG 1 TAB TABLET PO ONE (14:15)
[2020-01-30 14:40] VITALS: BP 135/69
--- NOTE | 2020-01-31 13:02 | OP ---
DATE OF SURGERY: 01/30/2020 SURGEON: Chris Smith MD. PREOPERATIVE DIAGNOSIS: Biopsy-proven carcinoma of the left breast. POSTOPERATIVE DIAGNOSIS: Biopsy-proven carcinoma of the left breast. ANESTHESIA: General. PROCEDURE: [place] node biopsy, left axilla with partial or segmental resection, left breast. The patient was spoken to by me and the oncologist and she understands the ramifications and reasons for the surgery and decided she wanted a wider excision even though the oncologist thought that this would be okay, but was not absolutely mandatory in this case. As such, we will proceed per her request and per what it is good for her. The anesthesia was general. The procedure as stated before was sentinel node biopsy on the left with segmental or partial mastectomy on the left. TECHNIQUE: Under general anesthesia, she was properly prepped and draped in a routine fashion. I spoke to the radiologist and the radioactive material had been injected about a hour and a half to 2 hours prior to this. We therefore using sterile technique placed the scanner over there and found an area of hot in the axilla about the high-to-mid portion of the axilla. As such, an incision was made following the skin lines with a 15 blade over this area, carried down through the subcutaneous. We went through the subcutaneous with cautery and also spreading with clamp kept putting the scanner there, so that we went directly to where the highest readings were. There was in fact a lymph node, which appeared to be about 2 cm in size. It should be noted that we did inject some methylene blue also. The lymph node was seen and using cautery and slowly getting away from the surrounding tissues, we were able to pull up on the tissues around it with a DeBakey clamp and divided the attachments to it and cauterized the small blood supply to it. This was sent fresh to the pathologist. There was no real bleeding there and what was there was controlled with cautery. The subcutaneous was then approximated with interrupted 3-0 Vicryl and the skin was closed using a subcuticular 5-0 Vicryl. Next, we proceeded to take care of the breast. The incision had been in the lower lateral quadrant of the breast and as such, the old incision was noted. We went around it in a fusiform fashion, same direction and with a 15 blade. We then grasped this and divided it from the surrounding structures. There was a seroma formation and we went completely around the tissues, around the seroma and all of the thickened tissue to good breast and fat tissue. Most of this was done with cautery as we slowly went around the area of previous dissection by many centimeters and slowly excised all this portion of the breast. One or two bleeders had to be suture ligated with 3-0 Vicryl. We inspected the area. There was no further difficulties and no bleeding and as such, we approximated the breast tissue using interrupted 3-0 Vicryl to obliterate the space and 4-0 Vicryl more superficially. The skin was closed using 5-0 nylon. The sterile dressings were applied as the procedure was terminated. The blood loss was probably around 15-20 mL. Fluids given can be obtained from the anesthesia sheet. No drains were used and the condition of the patient was satisfactory as she was returned to the recovery room. CHRIS SMITH MD DR: SANTIAGO/lyssa JOB#: [id number] / [id number]
== END 2020-01-30 15:30 | disposition home or self-care (01) ==
LOC: SURG 09:23
PROVIDERS: ATTEND Specialist
DX: C50.912 Malignant neoplasm of unspecified site of left female breast (principal); R59.1 Generalized enlarged lymph nodes; I10 Essential (primary) hypertension; I48.91 Unspecified atrial fibrillation; E66.9 Obesity, unspecified; Z68.34 Body mass index [BMI] 34.0-34.9, adult; Z79.01 Long term (current) use of anticoagulants; Z79.82 Long term (current) use of aspirin; Z98.890 Other specified postprocedural states; Z90.710 Acquired absence of both cervix and uterus; Z90.721 Acquired absence of ovaries, unilateral; Z72.89 Other problems related to lifestyle
CPT/HCPCS: 19301; 36415; 38525; 38792; 80053; 85025; 85610; 85730; 96374; A9520; J0690; J1100; J1885; J2370; J2405; J2704; J3010; J3490; Q9968; A7015; J7120

== ENCOUNTER 2021-03-21 06:59 | Outpatient (CLI) | payer BC ==
[~2021-03-21] VITALS: Ht 170.2 cm; Wt 104.5 kg
[2021-03-21] VITALS (9 sets, daily range): BP systolic 107–172; BP diastolic 60–86
[~2021-03-21 06:59] MED LIST changes: -HYDR50TA6 PO; +HYDR50TA9 PO; -HYDROmorphone 2 MG/ML VIAL IV PRN; -IV RINGERS,LACTATED 1000ML 1,000 ML IV SCH; -LIDOCAINE 1% PF 2 ML VIAL. ID PRN; -LIDOCAINE 2% PF 5 ML VIAL. ONE; -MORPHINE SULFATE 2 MG/ML VIAL. IV PRN; -PROCHLORPERAZINE 10 MG/2 ML VIAL. IV PRN; -PROPOFOL 20 ML IV ONE; -ROCURONIUM 50 MG/5 ML VIAL. ONE; -ceFAZolin SODIUM IV Push 1 GM VIAL. IVP PRN; -fentaNYL PF VIAL 100 MCG/2 ML VIAL IV PRN; -fentaNYL PF VIAL 100 MCG/2 ML VIAL ONE
[2021-03-21] MEDS ORDERED: IODIXANOL 320 MG/ML 100 ML VIAL. ONE ×2 (07:45→09:11)
[2021-03-21] MEDS ORDERED: LIDOCAINE 1% PF 2 ML VIAL. ONE (07:45)
[2021-03-21 07:51] LABS: HEMATOCRIT 34.9 % (36.0-47.0); HEMOGLOBIN 11.6 g/dL (12.0-15.5); RED BLOOD COUNT 3.91 x10^6/uL (3.50-5.40); RED CELL DISTRIBUTION WIDTH 14.5 % (11.5-14.5); WHITE BLOOD COUNT 5.4 x10^3/uL (4.0-11.0)
[2021-03-21] MEDS ORDERED: ATOR10TA60 PO (07:58)
[2021-03-21 08:00] LABS: CALCIUM 8.7 mg/dL (8.5-10.1); CREATININE 0.9 mg/dL (0.6-1.0); GFR 77.3; POTASSIUM 3.1 mmol/L (3.5-5.1)
[2021-03-21 08:03] LABS: PROTHROMBIN TIME PATIENT 12.3 SEC (11.7-14.0)
[2021-03-21] MEDS ORDERED: MIDAZOLAM HCL/PF 2 MG/2 ML VIAL. ONE ×2 (08:38→09:01)
[2021-03-21] MEDS ORDERED: VERAPAMIL 5 MG/2 ML VIAL. ONE (08:38)
[2021-03-21] MEDS ORDERED: fentaNYL PF VIAL 100 MCG/2 ML VIAL ONE (08:38)
[2021-03-21] MEDS ORDERED: HEPARIN for IV BOLUS 10,000 UNIT/10 ML VIAL. ONE (08:38)
[2021-03-21] MEDS ORDERED: NITROGLYCERIN 200 MCG/2 ML SYRINGE FOR CATH/VASC LAB. ONE (08:38)
[2021-03-21] MEDS ORDERED: HEPARIN for IV BOLUS 10,000 UNIT/10 ML VIAL. IART ONE (09:15)
[2021-03-21] MEDS ORDERED: fentaNYL PF VIAL 100 MCG/2 ML VIAL IV ONE (09:15)
[2021-03-21] MEDS ORDERED: LIDOCAINE 1% PF 2 ML VIAL. INJ ONE (09:15)
[2021-03-21] MEDS ORDERED: NITROGLYCERIN 200 MCG/2 ML SYRINGE FOR CATH/VASC LAB. IART ONE (09:15)
[2021-03-21] MEDS ORDERED: MIDAZOLAM HCL/PF 2 MG/2 ML VIAL. IV ONE (09:15)
[2021-03-21] MEDS ORDERED: IODIXANOL 320 MG/ML 100 ML VIAL. IART ONE (09:15)
[2021-03-21] MEDS ORDERED: VERAPAMIL 5 MG/2 ML VIAL. IART ONE (09:15)
--- NOTE | 2021-03-21 09:18 | PDOC ---
MODERATE SEDATION ASSESSMENT RISKS/ALTERNATIVES Risks/Alternatives Risks and alternatives of this type of sedation and procedure discussed with: RISK/ALTERNATIVES: Patient H & P ON CHART H & P H & P on chart and reviewed for co-morbid conditions and appropriate labs. H&P ON CHART: Yes STATUS PREG STATUS ASSESSED: N/A MEDS/ALLERGIES REVIEWED Meds/Allergies Reviewed Medications and Allergies including time and route of recently administered narcotics and sedatives. MEDS/ALLERGIES REVIEWED: Yes ASA RATING ASA RATING: II AIRWAY ASSESSMENT Airway Assessment Airway patency, oral function limitations, presence of caps, crowns, dentures, partials, and ability to extend neck assessed. AIRWAY ASSESSMENT: Yes MALLAMPATI SCORE MALLAMPATI SCORE: II PRE-SEDATION ASSESSMENT PRE-SEDATION ASSESSMENT: Yes DARIA RUIZ MD Mar 21, 2021 09:18
[2021-03-21] MEDS ORDERED: IV 1/2 NORMAL SALINE 1,000 ML IV SCH (09:30)
--- NOTE | 2021-03-21 09:41 | CARD ---
MR#: [id number] Date of Study: 03/21/2021 Ordering Physician: DARIA RUIZ, Referring Physician: DARIA RUIZ, Tech: RT Singh(R) APPROVED REPORT Technologist: RT Singh(R) Nurse: Patricia Galeana RN Procedure(s) performed: Left heart catheterization, selective coronary angiography, left ventriculogr aphy and root aortogram via right transradial approach FL TIME: 8.5 MINS DOSE: 63 GYCM2 CONTRAST: 188 ML MODERATE SEDATION: 33 MINS INDICATION The indication(s) include : Dyspnea on exertion and positive stress test. [facility] Clinical Frailty Scale [facility] Clinical Frailty Scale: Mildly Frail Heart Failure Heart Failure: No PROCEDURE NARRATIVE After explaining the risks, benefits and alternative options, informed consent was obtained from valentin ent. Patient was brought to the cardiac Local Operator and right wrist was prepped and draped in the usual fashion after confirming a positive modified Danish's test. Arterial access was obtained in the righ t radial artery and a 6 Eritrean sheath was inserted. 6 Eritrean Mickey catheter was used to perform alejandra ective angiography of the right coronary artery. 6 E[place]rean JL 3.5 catheter was used to perform select norma angiography of the left coronary artery. 6 Eritrean pigtail catheter was used to perform left vent riculography. Since we could not visualize the left circumflex artery, we positioned the pigtail cat heter in the aortic root and performed aortogram. 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 Patient tolerated the procedure we ll. Hemostasis was achieved using TR band. There were no immediate complications. The following fi ndings were noted. FINDINGS 1. Hemodynamics: Left ventricular end-diastolic pressure of 11 mmHg. No pullback gradient across th e aortic valve. 2. Left ventriculography: Normal left ventricle systolic function with ejection fraction estimated at 60%. No significant mitral regurgitation seen. 3. Coronary angiography: a. The left anterior descending artery arose from the left sinus of Valsalva and did not show any si gnificant stenosis. b. The left circumflex artery had an anomalous takeoff from a separate ostium in the right sinus of Valsalva. This did not show any significant stenosis. c. The right coronary artery was a large and dominant vessel arising from the right sinus of Valsalv a that did not show any significant stenosis. Conclusion 1. 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 No significant coronary artery disease. 2. Normal left ventricular systolic function with ejection fraction estimated at 60% Recommendations Medical Therapy Signed by : Daria Ruiz, Electronically Approved : 03/21/2021 09:40:40
--- NOTE | 2021-03-21 13:21 | NUR ---
Discharge Note: [facility] Discharge instructions and discharge home medications reviewed with Patient and a copy given. All questions have been answered and understanding verbalized. The following instructions and handouts were given: radial site care and adult moderate sedation Discontinued lines and drains: Peripheral IV intact. Patient discharged to Home or Self Care withSpousevia Wheelchair
== END 2021-03-21 12:30 | disposition home or self-care (01) ==
LOC: CCL 06:59
PROVIDERS: ATTEND Internal Medicine Cardiovascular Disease
DX: R06.09 Other forms of dyspnea (principal); R07.9 Chest pain, unspecified; R94.39 Abnormal result of other cardiovascular function study; I48.91 Unspecified atrial fibrillation; I10 Essential (primary) hypertension; M19.90 Unspecified osteoarthritis, unspecified site; Z90.710 Acquired absence of both cervix and uterus; Z98.890 Other specified postprocedural states; Z85.3 Personal history of malignant neoplasm of breast; Z79.899 Other long term (current) drug therapy; Z72.89 Other problems related to lifestyle
CPT/HCPCS: 36415; 80048; 85027; 85610; 93458; 93567; 99152; 99153; C1769; C1894; J1644; J2250; J3010; J3490; Q9967